=== PATIENT | female | born 1985 | race Caucasian/White ===

== ENCOUNTER 2019-01-22 23:56 | Emergency (ER) | payer MEDICAID ==
[~2019-01-22] VITALS: Ht 165.1 cm; Wt 142.4 kg
[2019-01-23] VITALS: Ht 165.1 cm; Wt 142.4 kg
[2019-01-23 02:36] VITALS: BP 152/86
== END 2019-01-23 02:36 | disposition home or self-care (01) ==
LOC: ED 23:56
DX: S61.213A Laceration without foreign body of left middle finger without damage to nail, initial encounter (principal); W26.0XXA Contact with knife, initial encounter; Y93.89 Activity, other specified; Y92.89 Other specified places as the place of occurrence of the external cause; Y99.8 Other external cause status
CPT/HCPCS: 90715; J2001